=== PATIENT | female | born 1975 | race Two or more races ===

== ENCOUNTER 2019-08-30 17:45 | Emergency (ER) | payer SELFPAY ==
[~2019-08-30] VITALS: Ht 165.1 cm; Wt 96.8 kg
[2019-08-30 18:27] VITALS: BP 184/119
--- NOTE | 2019-08-30 19:45 | PHYS DOC ---
Past Medical History Past Medical History: Diabetes-Type II, Hypertension Past Surgical History: No Surgical History Alcohol Use: None Adult General Chief Complaint Chief Complaint: SHOULDER INJURY [facility] Patient is a 44 year old female who presents to the emergency department, accompanied by her family member, with complaints of right shoulder pain. Patient states that a week ago a heavy box fell onto her right shoulder while she was working. She denies any numbness, tingling, or weakness of the arm. She reports increased pain with range of motion. She currently rates the pain a 10 out of 10 on pain scale, she reports the pain increases with movement, she denies any alleviating factors. She denies any chest pain, right elbow pain, right wrist pain, right hand pain, head, neck, or back pain. All other ROS is neg unless otherwise noted in HPI. Review of Systems Review of Systems See Above Physical Exam Physical Exam See Above Constitutional: Well developed, well nourished, no acute distress, non-toxic appearance, obese [] HENT: Normocephalic, atraumatic, bilateral external ears normal, nose normal. [] Eyes: PERRLA, EOMI, conjunctiva normal, no discharge. [] Neck: Normal range of motion, no tenderness, supple, no stridor. [] Cardiovascular:Heart rate regular rhythm, no murmur [] Lungs & Thorax: Bilateral breath sounds clear to auscultation, non-tender, Respirations even and unlabored, no retractions, no respiratory distress[] Skin: Warm, dry, no erythema, no rash. [] Back: No tenderness Extremities: R lateral and anterior shoulder TTP, no crepitus, no obvious deformity, no cyanosis, no clubbing, ROM limited due to pain, no edema; R elbow: ROM intact, non-tender, no edema; R wrist: ROM intact, non-tender, no edema, 2+ radial pulse Neurologic: Alert and oriented X 3, no focal deficits noted. [] Psychologic: Affect normal, judgement normal, mood normal. [] Current Patient Data Vital Signs Vital Signs Date Time Temp Pulse Resp B/P (MAP) Pulse Ox O2 Delivery O2 Flow Rate FiO2 08/30/19 18:27 98.3 71 16 184/119 (140) 100 Room Air 98.3 EKG EKG [] Radiology/Procedures Radiology/Procedures PROCEDURE: CHEST AP ONLY Exam: Chest one view INDICATION: Right shoulder pain TECHNIQUE: Frontal view of the chest Comparisons: None FINDINGS: The cardiomediastinal silhouette and pulmonary vessels are within normal limits. The lung and pleural spaces are clear. IMPRESSION: No acute cardiopulmonary process.[] PROCEDURE: SHOULDER 2+V RIGHT EXAM: 3 Views Right Shoulder DATE: 08/30/2019 6:33 PM INDICATION: COMPARISON: No Prior FINDINGS: There is no evidence for acute fracture or dislocation. AC joint is congruent. Mild AC joint degenerative change Humeral head is not high riding. IMPRESSION: 1. No acute fracture or dislocation. 2. Mild AC joint degenerative change. Course & Med Decision Making Course & Med Decision Making Pertinent Labs and Imaging studies reviewed. (See chart for details) [] Dragon Disclaimer Dragon Disclaimer This electronic medical record was generated, in whole or in part, using a voice recognition dictation system. Departure Departure Impression: Primary Impression: Right shoulder pain Additional Impression: Right shoulder strain Disposition: 01 HOME, SELF-CARE Condition: STABLE Referrals: NO PCP (PCP) Patient Instructions: Shoulder Pain, [id number], Shoulder, Range of Motion Exercises Additional Instructions: You can take Tylenol or ibuprofen as needed for pain. Activity as tolerated. Recommend application of ice, elevation, and rest of affected extremity. Follow- up with your work comp doctor if symptoms persist, return to the ER if your symptoms worsen. Problem Qualifiers Primary Impression: Right shoulder pain Chronicity: acute Qualified Codes: M25.511 - Pain in right shoulder Additional Impression: Right shoulder strain Encounter type: initial encounter Qualified Codes: S46.911A - Strain of unspecified muscle, fascia and tendon at shoulder and upper arm level, right arm, initial encounter ALIREZA AVILA APRN Aug 30, 2019 19:45
--- NOTE | 2019-08-30 20:15 | RAD ---
Exam: Chest one view INDICATION: Right shoulder pain TECHNIQUE: Frontal view of the chest Comparisons: None FINDINGS: The cardiomediastinal silhouette and pulmonary vessels are within normal limits. The lung and pleural spaces are clear. IMPRESSION: No acute cardiopulmonary process. Electronically signed by: Shaheen Olvera MD (08/30/2019 8:12 PM) [facility]
--- NOTE | 2019-08-30 20:16 | RAD ---
EXAM: 3 Views Right Shoulder DATE: 08/30/2019 6:33 PM INDICATION: COMPARISON: No Prior FINDINGS: There is no evidence for acute fracture or dislocation. AC joint is congruent. Mild AC joint degenerative change Humeral head is not high riding. IMPRESSION: 1. No acute fracture or dislocation. 2. Mild AC joint degenerative change. Electronically signed by: Javier Chow MD (08/30/2019 8:12 PM) [facility] [place]
== END 2019-08-30 19:54 | disposition home or self-care (01) ==
LOC: ER 17:45
DX: S46.911A Strain of unspecified muscle, fascia and tendon at shoulder and upper arm level, right arm, initial encounter (principal); M25.511 Pain in right shoulder; E11.9 Type 2 diabetes mellitus without complications; I10 Essential (primary) hypertension; W20.8XXA Other cause of strike by thrown, projected or falling object, initial encounter; Y93.89 Activity, other specified; Y92.89 Other specified places as the place of occurrence of the external cause; Y99.8 Other external cause status
CPT/HCPCS: 71045; 73030; 99284